=== PATIENT | female | born 1940 | race Caucasian/White ===

== ENCOUNTER 2022-03-18 11:57 | Emergency (ER) | payer MEDICARE, SELFPAY ==
--- NOTE | ~2022-03-18 | CT_ITS ---
EXAMINATION: CT brain wo con DATE: 03/18/2022 12:36 INDICATION: Head injury. TECHNIQUE: Computed tomography (CT) of the head was performed without intravenous contrast. The mA wa s adjusted according to patient size. Iterative reconstruction technique was employed. The dose-lengt h product was 605.33 mGy-cm. COMPARISON: None FINDINGS: There is no intracranial hemorrhage, acute infarction, or abnormal intracranial mass lesion . There are scattered areas of low attenuation in the cerebral white matter. The ventricles are jd l in size. There is a right posterior scalp hematoma. There is mild mucosal thickening in the paranas al sinuses. There are likely changes of ocular lens replacement surgeries. The mastoid air cells are normal. IMPRESSION: 1. Mild nonspecific cerebral white matter disease, which likely represents chronic small vessel ische lore disease. Reviewed, dictated and finalized at location A. IMPRESSION: 1. 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
[2022-03-18 12:03] VITALS: BP 137/86; PULSE 79; RESP 18; TEMP 36.6; O2SAT 97
[2022-03-18] MEDS: ACETAMINOPHEN 325 MG TABLET 650 MG PO (12:41)
--- NOTE | 2022-03-18 13:34 | ED.FALL ---
HPI - Fall General Chief Complaint: Fall Stated Complaint: dizzy, fall Time Seen by Provider: 03/18/22 11:58 History of Present Illness HPI Narrative: Patient is a 81-year-old female who presents ER status post fall. Patient fell backward striking her head. Denies losing consciousness. She reports mild headache. No change in vision or hearing. Patient had outpatient labs that showed BUN of 24 and creatinine 0.8. Patient has some difficulty speaking due to previous strokes but is able to communicate given time. She has no other concerns. Related Data Allergies Allergy/AdvReac Type Severity Reaction Status Date / Time codeine Allergy Unknown Verified 03/18/22 12:07 Review of Systems Review of Systems: All systems reviewed & are unremarkable except as noted in HPI and below Eyes: Eyes: Denies change in vision and Denies photophobia ENT: Denies nasal congestion and Denies sore throat Gastrointestinal: Gastrointestinal: Denies nausea and Denies vomiting Neurologic: Denies syncope, Reports headache(s), Denies focal weakness and Denies numbness PMFSH Past Medical History Medical History (Updated 03/18/22 @ 13:40 by Wiley Fajardo MD) CVA (cerebral vascular accident) GERD (gastroesophageal reflux disease) Herpes simplex infection of eye Hyperlipidemia Subdural hemorrhage Social History Social History (Updated 03/18/22 @ 13:41 by Wiley Fajardo MD) Social History: correction paperwork has patient listed as a DNR. Smoking status: Never smoker Exam Narrative: GENERAL: Well-appearing, well-nourished, and in no acute distress. HEAD: Normocephalic, posterior scalp hematoma. EYES: PERRL and EOMI. ENT: Mucous membranes moist. CHEST: Clear to auscultation. No respiratory distress. HEART: Regular rate and rhythm. Normal peripheral pulses. ABDOMEN: Soft, nontender, nondistended. EXTREMITIES: Normal range of motion. No edema. SKIN: Warm, dry, no rash. NEURO: Mild expressive aphasia alert and oriented x2. PSYCH: Normal mood and affect. Course Course Emergency Course: Patient resting comfortably. 1 L IV fluid given. Discharged home. Vital Signs Vital signs: Vital Signs Temperature 97.8 F 03/18/22 12:03 Pulse Rate 79 03/18/22 12:03 Respiratory Rate 18 03/18/22 12:03 Blood Pressure 137/86 03/18/22 12:03 Pulse Oximetry 97 03/18/22 12:03 Oxygen Delivery Room Air 03/18/22 12:03 Temperature 97.8 F 03/18/22 12:03 Pulse Rate 79 03/18/22 12:03 Respiratory Rate 18 03/18/22 12:03 Blood Pressure 137/86 03/18/22 12:03 Pulse Oximetry 97 03/18/22 12:03 Oxygen Delivery Room Air 03/18/22 12:03 MDM - Fall Imaging Data Radiologist's impression: ITS Impressions Head CT 03/18/22 12:39 IMPRESSION: 1. Mild nonspecific cerebral white matter disease, which likely represents chronic small vessel ischemic disease. Discharge Plan Discharge Clinical Impression: Minor head injury, Hematoma of scalp Patient Disposition: Home, Self-Care Condition: Stable Instructions: Head Injury (ED) Additional Instructions: Return to the ER if you suffer recurrent falls, you have chest pain or shortness of breath, you cannot keep down food or water, you have additional concerns. Follow-up/Referrals: UNKNOWN,DOCTOR [Primary Care Provider] - 1 Week
[2022-03-18] MEDS: SODIUM CHLORIDE 0.9% IV 1,000 ML 999 ML IV CONT (13:44)
[2022-03-18 14:10] VITALS: BP 124/83; PULSE 86; RESP 18; O2SAT 100
[2022-03-18 15:00] VITALS: BP 150/59; PULSE 84; RESP 16; O2SAT 98
== END 2022-03-18 15:32 ==
PROVIDERS: Emergency Provider Emergency Medicine
DX: S00.03XA Contusion of scalp, initial encounter (principal); I69.928 Other speech and language deficits following unspecified cerebrovascular disease; K21.9 Gastro-esophageal reflux disease without esophagitis; E78.5 Hyperlipidemia, unspecified; Z66 Do not resuscitate; R90.82 White matter disease, unspecified; W19.XXXA Unspecified fall, initial encounter
CPT/HCPCS: 70450; 96360; 99284; A9270; J7030

== ENCOUNTER 2022-04-19 22:16 | Emergency (ER) | payer MEDICARE, SELFPAY ==
[2022-04-19] VITALS (10 sets, daily range): BP systolic 135–144; BP diastolic 72–89; PULSE 65–86; RESP 13–17; TEMP 36.4; O2SAT 96–100
--- NOTE | ~2022-04-19 | XR_ITS ---
EXAM: XR hand LT min 3V DATE: 04/19/2022 22:51 HISTORY: swelling,bruising Lt hand,unwitnessed fall today . COMPARISON: None available. FINDINGS: Normal mineralization. No fracture or dislocation. No lytic or blastic lesion. Scattered o steoarthritic changes, most pronounced at the trapezium metacarpal joint. No erosion or periosteal ch seng. Soft tissues within normal limits. IMPRESSION: No acute osseous finding in the left hand. Reviewed, dictated and finalized at location K.
--- NOTE | ~2022-04-19 | CT_ITS ---
EXAMINATION: CT brain wo con DATE: 04/19/2022 22:46 INDICATION: head injury . TECHNIQUE: Computed tomography (CT) of the head was performed without intravenous contrast. The mA wa s adjusted according to patient size. Iterative reconstruction technique was employed. The dose-lengt h product was 605.33 mGy-cm. COMPARISON: 03/18/2022. FINDINGS: No acute intracranial hemorrhage or extra-axial fluid collection. No hydrocephalus, mass, or herniation. No acute ischemic infarct. Unremarkable dural venous sinus attenuation. No acute osseous abnormality. The aerated spaces are clear. Mild atrophy and chronic white matter change. Atherosclerotic intracranial calcification. Bilateral l ens replacements. IMPRESSION: No acute intracranial process. Reviewed, dictated and finalized at location K.
--- NOTE | ~2022-04-19 | CT_ITS ---
EXAMINATION: CT cervical spine wo con DATE: 04/19/2022 22:47 INDICATION: fall TECHNIQUE: Computed tomography (CT) of the cervical spine was performed without intravenous contrast. Automated exposure control and iterative reconstruction technique were employed. The dose-length pro duct was 143.51 mGy-cm. COMPARISON: None FINDINGS: Vertebral Body Alignment: Intact. Craniocervical and atlantoaxial alignment: Moderate degenerative change. Alignment intact. Osseous structures/fracture: No evidence of a lytic or blastic process in the visualized spine. No e vidence of acute fracture. Cervical soft tissues: The paraspinal soft tissues planes are maintained. Degenerative changes: Degenerative changes, without severe neural foraminal or central canal narrowin g. IMPRESSION: No acute fracture or traumatic malalignment in the cervical spine. Reviewed, dictated and finalized at location K.
--- NOTE | 2022-04-19 22:21 | ECG_ITS ---
Measurements Intervals [place] Rate: 70 P: 67 ND: 250 QRS: 26 QRSD: 141 T: -58 QT: 477 QTc: 518 Interpretive Statements SINUS RHYTHM WITH FIRST DEGREE AV BLOCK ATRIAL PREMATURE COMPLEXES LEFT BUNDLE BRANCH BLOCK BASELINE ARTIFACT- I, AVR, AVL, AVF ABNORMAL ECG Electronically Signed On 04-20-2022 7:24:22 CDT by Magnus Olivas D.O.
--- NOTE | 2022-04-19 22:24 | ED.HEATRA ---
HPI - Head Injury General Chief complaint: Head Injury Stated complaint: FALL w/ FOREHEAD LAC Time Seen by Provider: 04/19/22 22:17 Source: patient and RN notes reviewed Mode of arrival: ambulatory Limitations: no limitations History of Present Illness HPI Narrative: This is a 81 year old female with history of GERD, CVA, hyperlipidemia who presents for evaluation of an unwitnessed fall. EMS states patient has history of frequent falls and she likes to get out of bed unassisted and falls. Tonight she found on the floor, and they think she had only been on ground for few minutes. Patient has some speech difficulties due to previous CVA. EMS reports patient is at her baseline currently. Patient's only complaint is facial pain . She was found to have right forehead laceration and left 2nd finger bruising from tonight's fall. She does not take anticoagulation. Related Data Allergies Allergy/AdvReac Type Severity Reaction Status Date / Time codeine Allergy Unknown Verified 03/18/22 12:07 Review of Systems Review of Systems: ROS unobtainable: Yes unobtainable due to medical condition [facility] Past Medical History Medical History CVA (cerebral vascular accident) GERD (gastroesophageal reflux disease) Herpes simplex infection of eye Hyperlipidemia Subdural hemorrhage Social History Social History (Updated 03/18/22 @ 13:41 by Wiley Fajardo MD) Social History: custodial paperwork has patient listed as a DNR. Smoking status: Never smoker Exam Const: General: alert Limitations: physical limitations HENMT: Head: laceration (right forehead irregular laceration) General nose exam: Normal external nose present Mouth: Yes lip normal Throat: posterior oropharynx normal and uvula midline Other: old bruising to left cheek without swelling Eyes: Conjunctivae: conjunctivae normal Pupils: Equal, round and reactive pupils present EOM: EOMs intact bilaterally Chest: Chest palpation & inspection: normal inspection of the chest Resp: Effort & Inspection: normal respiratory effort Auscultation: clear to auscultation bilaterally Cardio: Rate: regular rate Rhythm: regular rhythm Heart sounds: no murmurs GI: GI Palp: Yes Soft to palpation, No Tenderness to palpation present (GI), No Guarding due to palpation present (GI) and No Rigid due to palpation Auscultation: normal bowel sounds Skin: Wounds: wounds noted (right forehead laceration) Neuro: General: moves all extremities Other: slurred speech and aphasia from previous stroke Extrem: Other: bruising and swelling 2nd MCP joint of left hand Psych: Mental Status: mental status grossly normal Course Reevaluation(s) Reevaluation #1: PAtient has no complaints. She is been resting comfortably Date: 04/20/22 Time: 01:43 Vital Signs Vital signs: Vital Signs Temperature 97.6 F 04/19/22 22:22 Pulse Rate 86 04/19/22 22:22 Respiratory Rate 16 04/19/22 22:22 Blood Pressure 144/89 H 04/19/22 22:22 Pulse Oximetry 96 04/19/22 22:22 Temperature 97.6 F 04/19/22 22:22 Pulse Rate 62 04/20/22 03:15 Respiratory Rate 16 04/20/22 03:15 Blood Pressure 116/53 L 04/20/22 03:01 Pulse Oximetry 97 04/20/22 03:15 Procedures Laceration Laceration 1: Date: 04/20/22 Time: 01:43 Site: face (right forehead) Size (cm): 5 Description: stellate and irregular Local Anesthetic: none (LET) Pre-repair: irrigated ====== Skin Level ====== Skin layer closed with: other (fast absorbing gut) Size (cm): 5-0 Number of sutures: 12 Technique: simple, interrupted ====== Subcutaneous Layer ====== ====== Muscle Layer ====== ====== Tendon Layer ====== MDM - Head Injury Lab Data Attestation: I reviewed the patient's lab results. Result diagrams: 04/19/22 22:29 04/19/22 2
[2022-04-19] MEDS: TETANUS,DIPHTHERIA,AC PERTUSSIS ADULT (0.5 ML) BOOSTRIX IM (22:29)
[2022-04-19] MEDS: LIDOCAINE, EPINEPHRINE, TETRACAINE VISCOUS SOLN 3 ML TOPICAL (22:30)
[2022-04-19 22:35] LABS: Basophils Absolute Auto 0.1 K/mm3 (0.0-0.1); Basophils Percent Auto 0.7 % (0.2-1.2); Eosinophils Absolute Auto 0.2 K/mm3 (0-0.3); Eosinophils Percent Auto 3.4 % (0-4.4); Hematocrit 35.5 % (37.0-47.0); Hemoglobin 11.3 g/dL (12.0-15.0); Immature Granulocyte Absolute 0.01 K/mm3 (0.00-0.031); Immature Granulocyte Percent A 0.1 % (0-0.5); Mean Corpuscular HGB Conc 31.8 g/dl (32-36); Mean Corpuscular Hemoglobin 29.4 pg (26-34); Mean Corpuscular Volume 92.4 fl (80-100); Mean Platelet Volume 11.2 fl (7.4-10.4); Monocytes Absolute Auto 0.8 K/mm3 (0.1-0.6); Monocytes Percent Auto 11.1 % (2.6-8.5); Neutrophils Absolute Auto 4.3 K/mm3 (1.3-6.7); Neutrophils Percent Auto 62.7 % (45.5-73.1); Platelet Count Result 235 k/mm3 (150-375); Red Blood Count 3.84 M/mm3 (4.2-5.4); Red Cell Distribution Width 15.4 % (11.5-14.5); White Blood Count 6.8 K/mm3 (4.5-10.0)
[2022-04-19 22:46] LABS: Alanine Aminotransferase 13 U/L (6-35); Albumin Level 3.4 g/dL (3.5-5.1); Alkaline Phosphatase 132 U/L (38-126); Anion Gap 8 mmol/L (8-16); Aspartate Amino Transferase 18 U/L (14-36); Bilirubin,Total 1.2 mg/dL (0.2-1.3); Blood Urea Nitrogen 20 mg/dL (7-17); Calcium 8.7 mg/dL (8.4-10.2); Carbon Dioxide 26 mmol/L (22-30); Chloride 103 mmol/L (98-107); Estimated CRCL calculation 46 ml/min; Estimated Glomerular Filt Rate > 60; Glucose 118 mg/dL (65-110); Potassium 3.9 mmol/L (3.4-5.0); Sodium 137 mmol/L (137-145)
[2022-04-19 23:15] LABS: Appearance Urine Clear (Clear); Bilirubin Urine Negative (Negative); Color Urine Yellow (Yellow); Glucose Urine UA Negative (Negative); Ketones Urine Negative (Negative); Leukocyte Esterase Ur Trace LEU/UL (Negative); Nitrate Urine Positive (Negative); Protein Urine Negative (Negative); Specific Grav Ur 1.025 (1.001-1.035); Urobilinogen Urine 0.2 mg/dL (<2.0); pH Urine 6.5 (5.0-9.0)
[2022-04-19 23:38] LABS: Bacteria Urine 4+ /hpf; Mucus Urine Moderate /lpf; RBC Urine 0-2 /hpf (0-2); Squamous Epithelial Cell Urine Rare /hpf (Few); WBC Urine 16-20 /hpf
[2022-04-19 23:40] LABS: Add Urine Microscopic? YES; Blood Urine Trace-Intact (Negative)
[2022-04-20] VITALS (26 sets, daily range): BP systolic 116–142; BP diastolic 53–87; PULSE 62–86; RESP 11–21; O2SAT 95–99
--- NOTE | 2022-04-20 02:09 | PC.NURSE ---
called [facility] to request transport. ETA 15-20 minutes
--- NOTE | 2022-04-20 02:44 | PC.NURSE ---
[facility] here.
== END 2022-04-20 03:15 ==
PROVIDERS: Emergency Provider General Practice; PCP Internal Medicine
DX: S01.81XA Laceration without foreign body of other part of head, initial encounter (principal); S60.222A Contusion of left hand, initial encounter; Z23 Encounter for immunization; I69.928 Other speech and language deficits following unspecified cerebrovascular disease; E78.5 Hyperlipidemia, unspecified; K21.9 Gastro-esophageal reflux disease without esophagitis; Z66 Do not resuscitate; R82.998 Other abnormal findings in urine; I44.0 Atrioventricular block, first degree; I49.1 Atrial premature depolarization; I44.7 Left bundle-branch block, unspecified; W19.XXXA Unspecified fall, initial encounter
CPT/HCPCS: 12013; 36415; 51701; 70450; 72125; 73130; 80053; 81001; 85025; 87077; 87086; 87186; 90471; 90715; 93005; 99284

== ENCOUNTER 2022-04-22 18:13 | Observation (INO) | payer MEDICARE, SELFPAY ==
--- NOTE | ~2022-04-22 | CT_ITS ---
EXAMINATION: CT brain & sinus wo con DATE: 04/24/2022 08:53 INDICATION: Subarachnoid hemorrhage. TECHNIQUE: Computed tomography (CT) of the head and of the sinuses was performed without intravenous contrast. Sagittal and coronal reconstructions the head were performed utilizing a brain window algor ithm and of the sinuses utilizing a high-frequency bone algorithm. The mA was adjusted according to p atient size. Iterative reconstruction technique was employed. The dose-length product was 757 mGy-cm. COMPARISON: head CT dated 04/22/2022 FINDINGS: No fracture. No interval change in a chronic CSF attenuation right parietal subdural hygroma. No sign ificant change in small amount of high attenuation blood consistent with subacute subarachnoid hemorr bhavik along a couple sulci and the anterior right temporal lobe. No new or enlarging hemorrhage identi fied. No acute infarction. There is mild scattered white matter hypoattenuation consistent with chron ic small vessel ischemic disease. Symmetric prominence of the sulci consistent with moderate age-appr opriate diffuse cerebral volume loss. Ventricles are normal and symmetric. No mass/mass effect. Uncha nged small linear dystrophic calcification in the left frontoparietal gracia radiata. The orbits and mastoid air cells are normal. Minimal mucoperiosteal thickening the bilateral ethmoid sinuses. Bilate ral ostiomeatal units are patent. IMPRESSION: 1. No interval change in a small right temporal subarachnoid hematoma. 2. 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 3. Age-related changes including moderate diffuse volume loss and mild scattered white matter hypoatt enuation consistent with chronic small vessel ischemic disease. Reviewed, dictated and finalized at location A. IMPRESSION: 1. No interval change in a small right temporal subarachnoid hematoma. 2. 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 3. Age-related changes including moderate diffuse volume loss and mild scattere d white matter hypoattenuation consistent with chronic small vessel ischemic di sease.
--- NOTE | ~2022-04-22 | CT_ITS ---
EXAMINATION: CT brain wo con DATE: 04/22/2022 18:44 INDICATION: Trauma to the head. TECHNIQUE: Computed tomography (CT) of the head was performed without intravenous contrast. The dose- length product was 605.33 mGy-cm. Automated exposure control and iterative reconstruction technique w ere employed. COMPARISON: CT dated 04/19/2022 subarachnoid hemorrhage FINDINGS: There is a small subarachnoid hemorrhage involving the right temporal lobe. Generalized atr ophy. There are scattered mild periventricular and subcortical white matter changes, most likely rela sierra to small vessel ischemic disease (microangiopathy). No ventriculomegaly or midline shift. Basilar cisterns are patent. No depressed skull fracture. Paranasal sinuses and mastoids are pneumatized. Th ere is right frontal scalp hematoma. There is intracranial atherosclerosis. IMPRESSION: 1. Small subarachnoid hemorrhage right temporal lobe. Reviewed, dictated and finalized at location A. Dr. Sami Flores discussed with Dr. Wiley Fajardo MD at 04/22/2022 18:52 CDT.
[2022-04-22 18:19] VITALS: BP 143/70; PULSE 84; RESP 14; TEMP 36.3; O2SAT 98
--- NOTE | 2022-04-22 19:22 | ED.FALL ---
HPI - Fall General Chief Complaint: Fall Stated Complaint: glf Time Seen by Provider: 04/22/22 18:21 History of Present Illness HPI Narrative: Patient is a 81-year-old female who presents ER from her assisted after fall. Patient was being assisted to transfer from her bed to her wheelchair when she fell striking her head. No loss of consciousness. Patient has history of subdural hemorrhage in the past. She is not on blood thinners. 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 Related Data Allergies Allergy/AdvReac Type Severity Reaction Status Date / Time codeine Allergy Unknown Verified 03/18/22 12:07 Review of Systems Review of Systems: ROS unobtainable: Yes unobtainable due to medical condition PMFSH Past Medical History Medical History (Updated 04/22/22 @ 21:09 by Wiley Fajardo MD) CVA (cerebral vascular accident) GERD (gastroesophageal reflux disease) Herpes simplex infection of eye Hyperlipidemia Subdural hemorrhage Surgical History Surgical History (Updated 04/22/22 @ 19:23 by Wiley Fajardo MD) No pertinent past surgical history Social History Social History (Updated 03/18/22 @ 13:41 by Wiley Fajardo MD) Social History: long-term paperwork has patient listed as a DNR. Smoking status: Never smoker Exam Narrative: GENERAL: Chronically ill-appearing, well-nourished, and in no acute distress. HEAD: Normocephalic, stellate laceration right forehead. EYES: PERRL and EOMI. ENT: Mucous membranes moist. NECK: Supple. Normal range of motion without midline tenderness. CHEST: Clear to auscultation. No respiratory distress. HEART: Regular rate and rhythm. Normal peripheral pulses. EXTREMITIES: Normal range of motion. No edema. SKIN: Warm, dry, no rash. NEURO: Alert and oriented x1. Course Course Emergency Course: I have contacted the patient's POA Yenifer Emerson. We have discussed that the patient has a subarachnoid hemorrhage. She reports that the patient is a DNR and she would not want any aggressive interventions should patient decompensate from the bleed. She prefer the patient be observed in case she has decompensation that way we could provide comfort care but she would not want the patient transferred to a tertiary care facility. Vital Signs Vital signs: Vital Signs Temperature 97.4 F L 04/22/22 18:19 Pulse Rate 84 04/22/22 18:19 Respiratory Rate 14 04/22/22 18:19 Blood Pressure 143/70 H 04/22/22 18:19 Pulse Oximetry 98 04/22/22 18:19 Oxygen Delivery Room Air 04/22/22 18:19 Temperature 97.4 F L 04/22/22 18:19 Pulse Rate 74 04/22/22 19:50 Respiratory Rate 12 04/22/22 19:50 Blood Pressure 134/92 H 04/22/22 19:50 Pulse Oximetry 98 04/22/22 19:50 Oxygen Delivery Room Air 04/22/22 18:19 Procedures Laceration Laceration 1: Date: 04/22/22 Time: 20:00 Site: face Side (If applicable): right Size (cm): 4 Description: stellate Depth: simple, single layer Local Anesthetic: lidocaine 1% and with epi Amount of anesthesia used (mL): 5 Pre-repair: wound explored, irrigated extensively and deep structures intact ====== Skin Level ====== Skin layer closed with: nylon Size (cm): 5-0 Number of sutures: 6 Technique: simple, interrupted ====== Subcutaneous Layer ====== ====== Muscle Layer ====== ====== Tendon Layer ====== MDM - Fall Lab Data Result diagrams: 04/22/22 19:37 04/22/22 19:37 Labs: Lab Results 04/22/22 04/22/22 04/22/22 Range/Units 19:37 19:37 19:37 WBC 7.2 (4.5-10.0) K/mm3 RBC 3.96 L (4.2-5.4) M/mm3 Hgb 11.6 L (12.0-15.0) g/dL Hct 36.4 L (37.0-47.0) % MCV 91.9 (80-100) fl MCH 29.3 (26-34) pg MCHC 31.9 L (32-36) g/dl RDW 15.3 H (11.5-14.5) % Plt Count 251 (150-375) k/mm3 MPV
--- NOTE | 2022-04-22 19:31 | PM.IMHP ---
H&P: HPI History of Present Illness Date/Time: 04/22/22 19:31 Chief Complaint: fall Narrative: This is a 81-year-old female halfway resident, wheelchair bound, advanced dementia, patient was brought for evaluation to the emergency room after she had a fall while transferring from the wheelchair to the bed striking her head on the way down. Preliminary workup was significant for CT of the head with acute right temporal subarachnoid hemorrhage on the right side patient also with laceration wound to the right forehead above orbital area status post sutures. patient was unable to give any history exhibited reverberation. Patient is been placed in observation. Review of Systems Review of Systems: ROS unobtainable: Yes unobtainable due to medical condition ( Advanced dementia) PMFSH Past Medical History Medical History (Updated 04/23/22 @ 05:10 by Keren Lainez MD) CVA (cerebral vascular accident) GERD (gastroesophageal reflux disease) Herpes simplex infection of eye Hyperlipidemia Subdural hemorrhage Surgical History Surgical History (Updated 04/22/22 @ 19:23 by Wiley Fajardo MD) No pertinent past surgical history Social History Social History (Updated 03/18/22 @ 13:41 by Wiley Fajardo MD) Social History: group home paperwork has patient listed as a DNR. Smoking status: Never smoker Spiritual care concerns: No Meds Home Medications and Allergies Home Medications Medication Instructions Recorded Confirmed Type acetaminophen 325 mg tablet 650 mg PO Q4H 04/22/22 04/22/22 History acyclovir 200 mg capsule 400 mg PO BID 04/22/22 04/22/22 History atorvastatin 40 mg tablet 40 mg PO HS 04/22/22 04/22/22 History buspirone 7.5 mg tablet 7.5 mg PO BID 04/22/22 04/22/22 History cholecalciferol (vitamin D3) 10 10 mcg PO DAILY 04/22/22 04/22/22 History mcg (400 unit) tablet famotidine 10 mg tablet 10 mg PO BID 04/22/22 04/22/22 History ferrous sulfate 325 mg (65 mg 325 mg PO DAILY 04/22/22 04/22/22 History iron) tablet (FeroSul) lidocaine 5 % topical patch 1 patch topical DAILY 04/22/22 04/22/22 History melatonin 5 mg tablet 5 mg PO HS PRN Insomnia 04/22/22 04/22/22 History polyethylene glycol 3350 17 gram 17 g PO DAILY 04/22/22 04/22/22 History oral powder packet (Miralax) prednisolone acetate 1 % eye 1 drp LEFT EYE Q12H 04/22/22 04/22/22 History drops,suspension sodium chloride 1 gram tablet 1,000 mg PO BID 04/22/22 04/22/22 History Allergies Allergy/AdvReac Type Severity Reaction Status Date / Time codeine Allergy Unknown Verified 04/22/22 23:04 Vital Signs Vital Signs - 24 hr 04/22/22 18:19 Temperature 97.4 F L Pulse Rate 84 Respiratory Rate 14 Blood Pressure 143/70 H Pulse Oximetry 98 Oxygen Delivery Room Air Exam Narrative: Patient is laying in a stretcher. Const: General: comfortable, no acute distress, well developed and patient obtunded Nutritional Appearance: average body habitus Orientation/consciousness: patient oriented x3 HENMT: Head: normocephalic, laceration right frontal and no raccoon eyes Ears: hearing grossly normal bilaterally Face and sinus: normal facial exam Eyes: General: appearance normal, both eyes and all related structures Pupils: Equal, round and reactive pupils present EOM: EOMs intact bilaterally Neck: Neck: full ROM, no lymphadenopathy and no JVD Thyroid: thyroid normal Lymphatic: no lymphadenopathy noted Resp: Effort & Inspection: normal respiratory effort and able to speak in complete sentences Auscultation: clear to auscultation bilaterally Cardio: Jugular venous distension: no JVD Rate: regular rate Rhythm: regular rhythm Heart sounds: S1 normal heart sound present and S2 normal heart sound present GI: GI Palp: Yes Soft to palpation and Yes No hepatosplenomegaly present : General: Yes deferred Skin: Rashes: no rashes Wounds: wounds noted Other: laceration wound to the right frontal area Ne
[2022-04-22 19:50] VITALS: BP 134/92; PULSE 74; RESP 12; O2SAT 98
[2022-04-22 19:55] LABS: Basophils Percent Auto 0.4 % (0.2-1.2); Eosinophils Absolute Auto 0.2 K/mm3 (0-0.3); Eosinophils Percent Auto 2.5 % (0-4.4); Hematocrit 36.4 % (37.0-47.0); Hemoglobin 11.6 g/dL (12.0-15.0); Immature Granulocyte Absolute 0.02 K/mm3 (0.00-0.031); Immature Granulocyte Percent A 0.3 % (0-0.5); Lymphocytes Absolute Auto 0.96 K/mm3 (0.9-3.2); Lymphocytes Percent Auto 13.4 % (18.3-44.2); Mean Corpuscular HGB Conc 31.9 g/dl (32-36); Mean Corpuscular Hemoglobin 29.3 pg (26-34); Mean Corpuscular Volume 91.9 fl (80-100); Mean Platelet Volume 11.4 fl (7.4-10.4); Monocytes Absolute Auto 0.7 K/mm3 (0.1-0.6); Monocytes Percent Auto 9.1 % (2.6-8.5); Neutrophils Absolute Auto 5.3 K/mm3 (1.3-6.7); Neutrophils Percent Auto 74.3 % (45.5-73.1); Platelet Count Result 251 k/mm3 (150-375); Red Blood Count 3.96 M/mm3 (4.2-5.4); Red Cell Distribution Width 15.3 % (11.5-14.5); White Blood Count 7.2 K/mm3 (4.5-10.0)
[2022-04-22 20:00] LABS: Anion Gap 10 mmol/L (8-16); Blood Urea Nitrogen 25 mg/dL (7-17); Calcium 8.4 mg/dL (8.4-10.2); Carbon Dioxide 24 mmol/L (22-30); Chloride 102 mmol/L (98-107); Estimated CRCL calculation 44 ml/min; Estimated Glomerular Filt Rate > 60; Glucose 136 mg/dL (65-110); Potassium 4.1 mmol/L (3.4-5.0); Sodium 136 mmol/L (137-145)
[2022-04-22 20:02] LABS: INR 1.1; Partial Thromboplastin Time 27.2 SECONDS (22.3-36.8); Prothrombin Time 14.2 Seconds (11.1-14.7)
[2022-04-22 20:58] LABS: SARS-CoV-2 RNA PCR Negative
[2022-04-22 22:03] VITALS: BP 123/87; PULSE 80; RESP 12; O2SAT 99
--- NOTE | 2022-04-22 22:20 | ADMGEN ---
This patient, Mary Ann Lomax, was admitted to [address] [place] [address] Room 324-02. Patient/family oriented to hospital policies and general routines including ID bracelet, bed and alarms, visiting hours, pain management, procedures, bathroom and other care routines, personal items, smoking policy, room service/diet, and visiting hours. Information on how to activate the Rapid Response Team has been discussed. Patient/Family are encouraged to report perceived risks to care and to ask questions if they do not understand what they are told or what they should do.
[2022-04-22 23:03] VITALS: BMI 22.4
[2022-04-22 23:32] VITALS: BP 140/64; PULSE 64; RESP 18; TEMP 36.2; O2SAT 95
[2022-04-23] MEDS: HALOPERIDOL LACTATE 5 MG/ML VIAL 1 MG IM (03:23)
[2022-04-23 06:00] VITALS: BP 150/65; PULSE 60; RESP 18; TEMP 36.2; O2SAT 98
--- NOTE | 2022-04-23 12:11 | PM.IMPN ---
Progress Note: A&P Assessment and Plan (1) Subdural hemorrhage: Code(s): I62.00 - Nontraumatic subdural hemorrhage, unspecified Status: Acute Assessment and Plan: supportive care place in observation continue to monitor Repeat CT scan tomorrow (2) AMS (altered mental status): Code(s): R41.82 - Altered mental status, unspecified Status: Acute Assessment and Plan: likely secondary to above supportive care This is not far from baseline. (3) CVA (cerebral vascular accident): Code(s): I63.9 - Cerebral infarction, unspecified Status: Acute Assessment and Plan: presence of old stroke according to old CT (4) GERD (gastroesophageal reflux disease): Code(s): K21.9 - Gastro-esophageal reflux disease without esophagitis Status: Acute Assessment and Plan: PPI as needed (5) Laceration of face: Code(s): S01.81XA - Laceration without foreign body of other part of head, initial encounter Status: Acute Assessment and Plan: sutures in place local care Subjective Date/time seen: 04/23/22 12:11 No new complaints Exam Narrative: Patient is laying in a stretcher. Const: General: comfortable, no acute distress, well developed and patient obtunded Nutritional Appearance: average body habitus Orientation/consciousness: oriented to person, patient oriented x3 and patient obtunded HENMT: Head: normocephalic, laceration and no raccoon eyes Ears: hearing grossly normal bilaterally Face and sinus: normal facial exam Eyes: General: appearance normal, both eyes and all related structures Pupils: Equal, round and reactive pupils present EOM: EOMs intact bilaterally Neck: Neck: full ROM, no lymphadenopathy and no JVD Thyroid: thyroid normal Lymphatic: no lymphadenopathy noted Resp: Effort & Inspection: normal respiratory effort and able to speak in complete sentences Auscultation: clear to auscultation bilaterally Cardio: Jugular venous distension: no JVD Rate: regular rate Rhythm: regular rhythm Heart sounds: S1 normal heart sound present and S2 normal heart sound present : General: Yes deferred Skin: Rashes: no rashes Wounds: wounds noted Other: laceration wound to the right frontal area Neuro: General: oriented to person, patient oriented x3, CN's II-XI intact bilaterally, patient obtunded and Unable to assess gait Cranial nerves: Yes CN's II-XII intact bilaterally and Yes Equal, round and reactive pupils present Cognition (Neuro): abnormal cognition ( obtundation) Speech: aphasia Gait exam (Neuro): Unable to assess gait Extrem: General: normal to inspection, full ROM, no joint enlargement and no pedal edema Objective Data Vital Signs Vital Signs: Vital Signs - 24 hr 04/22/22 18:19 04/22/22 19:50 04/22/22 22:03 Temperature 97.4 F L Pulse Rate 84 74 80 Respiratory Rate 14 12 12 Blood Pressure 143/70 H 134/92 H 123/87 Pulse Oximetry 98 98 99 Oxygen Delivery Room Air 04/22/22 23:32 04/23/22 06:00 Temperature 97.2 F L 97.2 F L Pulse Rate 64 60 Respiratory Rate 18 18 Blood Pressure 140/64 150/65 H Pulse Oximetry 95 98 Oxygen Delivery Intake/Output Intake/Output: Intake & Output 04/20/22 04/21/22 04/22/22 04/23/22 23:59 23:59 23:59 23:59 Intake Total 220 Balance 220 Meds/Results Medications: Active Medications Generic Name Dose Route Start Last Admin Trade Name Freq PRN Reason Stop Dose Admin Acetaminophen 650 mg 04/22/22 19:40 Acetaminophen 325 Mg Tablet PO Q4H PRN Mild Pain (1-3) or Fever Hydrocodone Bitart/Acetaminophen 1 tab 04/22/22 19:40 Hydrocodone/Acetaminophen (*Crx) 5-325 Mg Tablet PO Q4H PRN Pain Rated 4-6 Fentanyl Citrate 50 mcg 04/22/22 19:40 Fentanyl Citrate Inj (*Crx) 100 Mcg/2 Ml Vial IV PUSH Q2H PRN Pain Rated 7-10 Ondansetron HCl 4 mg 04/22/22 19:40 Ondansetron Inj 4 Mg/2 Ml Vial IV PUSH
[2022-04-23 13:12] VITALS: BP 117/70; PULSE 72; RESP 18; TEMP 36.8; O2SAT 96
[2022-04-23] MEDS: CHOLECALCIFEROL 400 UNITS TABLET (VIT D) PO (15:46)
[2022-04-23] MEDS: polyethylene glycoL 3350 17 GM POWD.PACK PO (15:46)
[2022-04-23] MEDS: FERROUS SULFATE 324 MG TABLET PO (15:46)
[2022-04-23] MEDS: LIDOCAINE 5% PATCH 1 PATCH TOPICAL (15:46)
[2022-04-23] MEDS: HYDROcodone/acetaminophen (*CRX) 5-325 MG TABLET 1 TAB PO (15:51)
[2022-04-23] MEDS: FAMOTIDINE 10 MG TABLET PO (16:04)
[2022-04-23] MEDS: ACYCLOVIR 200 MG CAPSULE 400 MG PO (16:04)
[2022-04-23] MEDS: busPIRone HCL 5 MG TABLET PO (16:04)
[2022-04-23] MEDS: SODIUM CHLORIDE 1 GM TABLET PO (16:05)
[2022-04-23] MEDS: busPIRone HCL 2.5 MG TABLET PO (16:13)
[2022-04-23 20:30] VITALS: PULSE 60; RESP 18; O2SAT 100
[2022-04-23] MEDS: prednisoLONE ACETATE 1% OPHTH 5 ML 1 DROP LEFT EYE (21:03)
[2022-04-23] MEDS: ATORVASTATIN 40 MG TABLET PO (21:03)
[2022-04-23 22:00] VITALS: BP 120/71; PULSE 60; RESP 18; TEMP 36.7; O2SAT 100
[2022-04-24 06:00] VITALS: BP 113/62; PULSE 66; RESP 18; TEMP 36.8; O2SAT 97
[2022-04-24] MEDS: ACYCLOVIR 200 MG CAPSULE 400 MG PO ×2 (09:00→18:09)
[2022-04-24] MEDS: CEFDINIR 300 MG CAPSULE PO (09:00)
[2022-04-24] MEDS: FAMOTIDINE 10 MG TABLET PO ×2 (09:00→18:10)
[2022-04-24] MEDS: SODIUM CHLORIDE 1 GM TABLET PO ×2 (09:00→18:10)
[2022-04-24] MEDS: busPIRone HCL 5 MG TABLET PO ×2 (09:00→18:10)
[2022-04-24] MEDS: busPIRone HCL 2.5 MG TABLET PO ×2 (09:00→18:10)
[2022-04-24] MEDS: FERROUS SULFATE 324 MG TABLET PO (09:00)
[2022-04-24] MEDS: CHOLECALCIFEROL 400 UNITS TABLET (VIT D) PO (09:00)
[2022-04-24] MEDS: polyethylene glycoL 3350 17 GM POWD.PACK PO (09:00)
[2022-04-24] MEDS: prednisoLONE ACETATE 1% OPHTH 5 ML 1 DROP LEFT EYE (09:01)
[2022-04-24] MEDS: LIDOCAINE 5% PATCH 1 PATCH TOPICAL (09:01)
--- NOTE | 2022-04-24 13:11 | PM.DS ---
DS: Admitting Diagnosis Discharge Date April 24, 2022 Admitting Diagnosis uti, ams DS: Discharge Diagnosis Discharge Diagnosis (1) Subdural hemorrhage: Code(s): I62.00 - Nontraumatic subdural hemorrhage, unspecified Status: Acute Assessment and Plan: Subarachnoid Repeat CT (2) AMS (altered mental status): Code(s): R41.82 - Altered mental status, unspecified Status: Acute Assessment and Plan: likely secondary to above, possibly related to UTI as well. supportive care This is not far from baseline. (3) CVA (cerebral vascular accident): Code(s): I63.9 - Cerebral infarction, unspecified Status: Acute Assessment and Plan: presence of old stroke according to old CT (4) GERD (gastroesophageal reflux disease): Code(s): K21.9 - Gastro-esophageal reflux disease without esophagitis Status: Acute Assessment and Plan: PPI as needed (5) Laceration of face: Code(s): S01.81XA - Laceration without foreign body of other part of head, initial encounter Status: Acute Assessment and Plan: sutures in place local care (6) UTI (urinary tract infection): Code(s): N39.0 - Urinary tract infection, site not specified Status: Acute Assessment and Plan: Oral antibiotics on discharge DS: Summary Hospital Course Hospital Course: Patient admitted for altered mental status status post fall found have a urinary tract infection and also subarachnoid bleed this is not the 1st time she has had this. This was small in required no intervention. Repeat CT scan was obtained. Patient's mental status is improved overall and her sister's present and the patient is a baseline. She will be discharged to facility. Time Spent with Patient Time attestation: Total time spent providing and/or coordinating discharge services: Exam Narrative: Patient is laying in a stretcher. Const: General: comfortable, no acute distress, well developed and patient obtunded Nutritional Appearance: average body habitus Orientation/consciousness: oriented to person, patient oriented x3 and patient obtunded HENMT: Head: normocephalic, laceration and no raccoon eyes Ears: hearing grossly normal bilaterally Face and sinus: normal facial exam Eyes: General: appearance normal, both eyes and all related structures Pupils: Equal, round and reactive pupils present EOM: EOMs intact bilaterally Neck: Neck: full ROM, no lymphadenopathy and no JVD Thyroid: thyroid normal Lymphatic: no lymphadenopathy noted Resp: Effort & Inspection: normal respiratory effort and able to speak in complete sentences Auscultation: clear to auscultation bilaterally Cardio: Jugular venous distension: no JVD Rate: regular rate Rhythm: regular rhythm Heart sounds: S1 normal heart sound present and S2 normal heart sound present : General: Yes deferred Skin: Rashes: no rashes Wounds: wounds noted Other: laceration wound to the right frontal area Neuro: General: oriented to person, patient oriented x3, CN's II-XI intact bilaterally, patient obtunded and Unable to assess gait Cranial nerves: Yes CN's II-XII intact bilaterally and Yes Equal, round and reactive pupils present Cognition (Neuro): abnormal cognition ( obtundation) Speech: aphasia Gait exam (Neuro): Unable to assess gait Extrem: General: normal to inspection, full ROM, no joint enlargement and no pedal edema Discharge Plan Discharge Attending physician on discharge: Ward Gardner Discharging Clinician: Ward Gardner Patient Disposition: SNF Activity: no preference Diet: as tolerated Patient Instructions: Antibiotic Form Stand Alone Forms: General Discharge Information Discharge Medications: New cefdinir 300 mg Capsule 300 mg PO Q12HR 4 Days Qty: 8 0RF Continued atorvastatin 40 mg Tablet 40 mg PO HS acetaminophen 325 mg Tablet 650 mg PO Q4H famotidi
[2022-04-24 14:00] VITALS: BP 118/64; PULSE 62; RESP 16; TEMP 37; O2SAT 98
[2022-04-24 14:25] LABS: EDCOVIDSCREEN Negative (Negative)
== END 2022-04-24 20:15 ==
LOC: ANHED 21:09 → ANH3MEDSUR 04-23 04:41
PROVIDERS: Admitting Provider Internal Medicine; Emergency Provider Emergency Medicine; PCP Internal Medicine; Visit Provider Chiropractor
DX: I62.00 Nontraumatic subdural hemorrhage, unspecified (principal); S01.81XA Laceration without foreign body of other part of head, initial encounter; N39.0 Urinary tract infection, site not specified; R41.82 Altered mental status, unspecified; W01.198A Fall on same level from slipping, tripping and stumbling with subsequent striking against other object, initial encounter; E78.5 Hyperlipidemia, unspecified; K21.9 Gastro-esophageal reflux disease without esophagitis; B00.9 Herpesviral infection, unspecified; F03.90 Unspecified dementia, unspecified severity, without behavioral disturbance, psychotic disturbance, mood disturbance, and anxiety; Z99.3 Dependence on wheelchair; Z20.822 Contact with and (suspected) exposure to COVID-19; Z86.73 Personal history of transient ischemic attack (TIA), and cerebral infarction without residual deficits; Z66 Do not resuscitate
CPT/HCPCS: 12013; 36415; 70450; 70486; 80048; 85025; 85610; 85730; 87426; 96372; 99285; A9270; C9803; G0378; J1630; U0003; U0005